=== PATIENT | female | born 2000 | race Caucasian/White ===

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

== ENCOUNTER 2020-09-01 09:44 | Emergency (ER) | payer BC, OTHER ==
[2020-09-01] MEDS ORDERED: Sodium Chloride 0.9% 1,000 ML IV ONE (10:08)
[2020-09-01] MEDS ORDERED: Ondansetron 4 MG/2 ML SDV IVPUSH ONE (10:08)
[2020-09-01] MEDS ORDERED: Pantoprazole 80 MG in Sodium Chloride 0.9% 20 ML IVPUSH ONE (10:13)
[2020-09-01 10:34] LABS: BLOOD UREA NITROGEN,BUN 10 mg/dL (7.0-18.0); CARBON DIOXIDE,CO2 21.6 mmol/L (21.0-32.0); CHLORIDE,CL 104 mmol/L (98-107); GLUCOSE RANDOM 89 mg/dL (74-106); LIPASE 53 U/L (73-393); POTASSIUM,K 4.3 mmol/L (3.5-5.1); SODIUM,NA 139 mmol/L (136-145)
[2020-09-01] MEDS ORDERED: Sodium Chloride 0.9% 500 ML IV SCH (11:00)
--- NOTE | 2020-09-01 11:12 | EDM.PDOC ---
ED HPI GENERAL MEDICAL PROBLEM - General Chief Complaint: Gastrointestinal Problem Stated Complaint: VOMITTING Time Seen by Provider: 09/01/20 09:59 Source of Information: Reports: Patient History Limitations: Reports: No Limitations - History of Present Illness INITIAL COMMENTS - FREE TEXT/NARRATIVE: HISTORY AND PHYSICAL: History of present illness: Patient is a 20-year-old female who presents to the ED today with concern of nausea and vomiting after a night of binge drinking alcohol. Patient states that she went out last night with friends and she drank too much alcohol and starting in the middle of the night has been vomiting. Patient states she is vomited approximately 6 times since 5 this morning. Patient states her last episode of vomiting was 3 hours prior to arrival to the ED. Patient states she has not tried to drink any fluids as she feels nauseous. Patient states that she has noticed some blood in her emesis. Patient states that she does not usually drink alcohol and does not use it chronically. Patient denies any other substance use. Patient denies any health history. Patient denies fever, chills, chest pain, shortness of breath, or cough. Denies headache, neck stiff ness, change in vision, syncope, or near syncope. Denies abdominal pain, diarrhea, constipation, or dysuria. Has not noted any blood in urine or stool. Review of systems: As per history of present illness and below otherwise all systems reviewed and negative. Past medical history: As per history of present illness and as reviewed below otherwise noncontributory. Surgical history: As per history of present illness and as reviewed below otherwise noncontributory. Social history: See social history for further information Family history: As per history of present illness and as reviewed below otherwise noncontributory. Physical exam: General: Patient is alert, oriented, and in no acute distress. Patient sitting comfortably on exam table. Tachycardic 120 otherwise vitally stable. HEENT: Atraumatic, normocephalic, pupils equal and reactive bilaterally, negative for conjunctival pallor or scleral icterus, mucous membranes moist, TMs normal bilaterally, throat clear, neck supple, nontender, trachea midline. No drooling or trismus noted. No meningeal signs. No hot potato voice noted. Lungs: Clear to auscultation, breath sounds equal bilaterally, chest nontender. Heart: S1S2, regular rate and rhythm without overt murmur Abdomen: Soft, nondistended, nontender. Negative for masses or hepatosplenomegaly. Negative for costovertebral tenderness. Pelvis: Stable nontender. Genitourinary: Deferred. Rectal: Deferred. Skin: Intact, warm, dry. No lesions or rashes noted. Extremities: Atraumatic, negative for cords or calf pain. Neurovascular unremarkable. Neuro: Awake, alert, oriented. Cranial nerves II through XII unremarkable. Cerebellum unremarkable. Motor and sensory unremarkable throughout. Exam nonfocal. Notes: On initial exam, patient is well-appearing and she is not actively vomiting. She has not had any episodes of emesis over the past 3 hours prior to arriving to the ED. She is tachycardic 120s otherwise vitally stable. Will obtain la bwork, initiate IV fluids, and reassess patient. After 1L NS, his heart rate has normalized to 80 and 90 bpm and she remains comfortable on exam. She has not had any episodes of vomiting in the ED. Patient monitored for total of 2-1/2 hours (now 5.5 hours since last episode of emesis) has not had any vomiting today in the ED. She remains vitally stable and comfortable on exam. Strict return precautions thoroughly discussed with patient. Discussed importance for follow-up with a primary care provider. Voices understanding and is agreeable to plan of care. Denies any further questions or concerns at this time. Diagnostics: CBC, CMP, Serum hcg, Lipase Therapeutics: NS, Zofran, Protonix Prescription: Zofran, Prilosec Impression: Nausea H/O vomiting H/O hematemesis Plan: 1. Take medication as prescribed. Encourage small but frequent sips of fluid to prevent dehydration. 2. Follow-up with your primary care provider as discussed. Return to the ED as needed and as discussed. Definitive disposition and diagnosis as appropriate pending reevaluation and review of above. 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: Reports: 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 Musculoskeletal History: Reports: None Neurological History: Reports: None Psychiatric History: Reports: None Endocrine/Metabolic History: Reports: None Hematologic History: Reports: None Immunologic History: Reports: None Oncologic (Cancer) History: Reports: None Dermatologic History: Reports: None - Past Surgical History Head Surgeries/Procedures: Reports: None HEENT Surgical History: Reports: None Cardiovascular Surgical History: Reports: None Respiratory Surgical History: Reports: None GI Surgical History: Reports: None Female Surgical History: Reports: None Endocrine Surgical History: Reports: None Neurological Surgical History: Reports: None Musculoskeletal Surgical History: Reports: None Oncologic Surgical History: Reports: None Dermatological Surgical History: Reports: None Social & Family History - Family History Family Medical History: No Pertinent Family History - Tobacco Use Tobacco Use Status *Q: Never Tobacco User - Caffeine Use Caffeine Use: Reports: Coffee, Energy Drinks, Soda, Tea - Recreational Drug Use Recreational Drug Use: No ED ROS GENERAL - Review of Systems Review Of Systems: Comprehensive ROS is negative, except as noted in HPI. ED EXAM, GENERAL - Physical Exam Exam: See Below (see dictation) Course - Vital Signs Last Recorded V/S: Last Vital Signs Temp 97.8 F 09/01/20 09:51 Pulse 101 H 09/01/20 11:23 Resp 16 09/01/20 11:23 BP 111/64 09/01/20 11:23 Pulse Ox 100 09/01/20 11:23 - Orders/Labs/Meds Orders: Active Orders 24 hr Category Date Time Status Chest 1V Frontal [CR] Stat Exams 09/01/20 11:35 Taken Sodium Chloride 0.9% [Normal Saline] 500 ml Med 09/01/20 11:00 Active IV STAT Medication Orders Sodium Chloride (Normal Saline) 500 mls @ 999 mls/hr IV STAT ANN Last Admin: 09/01/20 11:23 Dose: 999 mls/hr Documented by: TIMO Labs: Laboratory Tests 09/01/20 09/01/20 09/01/20 Range/Units 10:03 10:03 10:03 WBC 12.05 H (4.0-11.0) K/uL RBC 4.82 (4.30-5.90) M/uL Hgb 14.9 (12.0-16.0) g/dL Hct 43.7 (36.0-46.0) % MCV 90.7 (80.0-98.0) fL MCH 30.9 (27.0-32.0) pg MCHC 34.1 (31.0-37.0) g/dL RDW Std Deviation 42.6 (28.0-62.0) fl RDW Coeff of Sukumar 13 (11.0-15.0) % Plt Count 230 (150-400) K/uL MPV 11.80 (7.40-12.00) fL Neut % (Auto) 83.3 H (48.0-80.0) % Lymph % (Auto) 11.5 L (16.0-40.0) % [place] % (Auto) 4.8 (0.0-15.0) % Eos % (Auto) 0.2 (0.0-7.0) % Baso % (Auto) 0.2 (0.0-1.5) % Neut # (Auto) 10.0 H (1.4-5.7) K/uL Lymph # (Auto) 1.4 (0.6-2.4) K/uL [place] # (Auto) 0.6 (0.0-0.8) K/uL Eos # (Auto) 0.0 (0.0-0.7) K/uL Baso # (Auto) 0.0 (0.0-0.1) K/uL Nucleated RBC % 0.0 /100WBC Nucleated RBCs # 0 K/uL Sodium 139 (136-145) mmol/L Potassium 4.3 (3.5-5.1) mmol/L Chloride 104 (98-107) mmol/L Carbon Dioxide 21.6 (21.0-32.0) mmol/L BUN 10 (7.0-18.0) mg/dL Creatinine 0.9 (0.6-1.0) mg/dL Est Cr Clr Drug Dosing 85.38 mL/min Estimated GFR (MDRD) > 60.0 ml/min Glucose 89 (74-106) mg/dL Calcium 9.4 (8.5-10.1) mg/dL Total Bilirubin 0.6 (0.2-1.0) mg/dL AST 14 L (15-37) IU/L ALT 21 (14-63) IU/L Alkaline Phosphatase 93 (46-116) U/L Total Protein 8.7 H (6.4-8.2) g/dL Albumin 4.5 (3.4-5.0) g/dL Globulin 4.2 H (2.6-4.0) g/dL Albumin/Globulin Ratio 1.1 (0.9-1.6) Lipase 53 L (73-393) U/L HCG, Qual NEGATIVE (NEG) Meds: Medications Generic Name Dose Route Start Last Admin Trade Name Freq PRN Reason Stop Dose Admin Sodium Chloride 500 mls @ 999 mls/hr 09/01/20 11:00 09/01/20 11:23 Normal Saline IV 999 mls/hr STAT ANN Administration Discontinued Medications Generic Name Dose Route Start Last Admin Trade Name Freq PRN Reason Stop Dose Admin Sodium Chloride 1,000 mls @ 999 mls/hr 09/01/20 10:08 09/01/20 10:22 Normal Saline IV 09/01/20 11:08 999 mls/hr BOLUS ONE Administration Pantoprazole Sodium 80 mg/ 20 mls @ 420 mls/hr 09/01/20 10:13 09/01/20 10:21 Sodium Chloride IVPUSH 09/01/20 10:15 420 mls/hr ONETIME ONE Administration Ondansetron HCl 4 mg 09/01/20 10:08 09/01/20 10:21 Ondansetron 4 Mg/2 Ml Sdv IVPUSH 09/01/20 10:09 4 mg ONETIME ONE Administration Departure - Departure Time of Disposition: 12:10 Disposition: Home, Self-Care 01 Clinical Impression: Nausea, History of vomiting, History of hematemesis - Discharge Information Prescriptions: Omeprazole Magnesium [Prilosec] 10 mg PO DAILY #1 suspdr.pkt Ondansetron [Zofran ODT] 4 mg PO Q6H PRN #8 tab.dis PRN Reason: Nausea/Vomiting Instructions: Nausea and Vomiting, Adult Referrals: PCP,None [Primary Care Provider] - Forms: ED Department Discharge Additional Instructions: The following information is given to patients seen in the emergency department who are being discharged to home. This information is to outline your options for follow-up care. We provide all patients seen in our emergency department with a follow-up referral. The need for follow-up, as well as the timing and circumstances, are variable depending upon the specifics of your emergency department visit. If you don't have a primary care physician on staff, we will provide you with a referral. We always advise you to contact your personal physician following an emergency department visit to inform them of the circumstance of the visit and for follow-up with them and/or the need for any referrals to a consulting specialist. The emergency department will also refer you to a specialist when appropriate. This referral assures that you have the opportunity for follow-up care with a specialist. All of these measure are taken in an effort to provide you with optimal care, which includes your follow-up. Under all circumstances we always encourage you to contact your private physician who remains a resource for coordinating your care. When calling for follow-up care, please make the office aware that this follow-up is from your recent emergency room visit. If for any reason you are refused follow-up, please contact the [facility] Emergency Department at and asked to speak to the emergency department charge nurse. [facility] [address] [place] [id number] [id number] 1. Take medication as prescribed. Encourage small but frequent sips of fluid to prevent dehydration. 2. Follow-up with your primary care provider as discussed. Return to the ED as needed and as discussed. Sepsis Event Note (ED) - Evaluation Sepsis Screening Result: No Definite Risk - Focused Exam Vital Signs: Vital Signs Temp Pulse Resp BP Pulse Ox 09/01/20 11:23 101 H 16 111/64 100 09/01/20 11:10 93 16 105/78 100 09/01/20 09:51 97.8 F 120 H 18 124/79 98 - My Orders Last 24 Hours: My Active Orders 09/01/20 11:00 Sodium Chloride 0.9% [Normal Saline] 500 ml IV STAT 09/01/20 11:35 Chest 1V Frontal [CR] Stat - Assessment/Plan Last 24 Hours: My Active Orders 09/01/20 11:00 Sodium Chloride 0.9% [Normal Saline] 500 ml IV STAT 09/01/20 11:35 Chest 1V Frontal [CR] Stat
--- NOTE | 2020-09-01 12:23 | CR ---
INDICATION: Vomiting. TECHNIQUE: Chest 1 view. COMPARISON: None FINDINGS: Cardiovascular and mediastinum: Heart size and vasculature are normal in caliber and appearance. Mediastinum is within normal limits. Lungs and pleural space: Lungs are clear. No sign of infiltrate or mass. No sign of pleural effusion. No pneumothorax. Bones and soft tissues: No significant findings. IMPRESSION: Lungs are clear. Dictated by David Campos MD @ Sep 01 2020 12:21PM Signed by Dr. David Campos @ Sep 01 2020 12:22PM
== END 2020-09-01 12:31 | disposition home or self-care (01) ==
LOC: MW.ED 09:44
DX: R11.2 Nausea with vomiting, unspecified (principal)
CPT/HCPCS: 36415; 71045; 80053; 83690; 84703; 85025; 96374; 96375; 99284; C9113; J2405; J7030; J7040; 99283

== ENCOUNTER 2022-04-15 20:24 | Emergency (ER) | payer BC, OTHER | END 2022-04-15 21:29 | disposition home or self-care (01) | LOC: MW.ED 20:24 | DX: S93.491A Sprain of other ligament of right ankle, initial encounter (principal); X50.1XXA Overexertion from prolonged static or awkward postures, initial encounter; Y93.68 Activity, volleyball (beach) (court) | CPT/HCPCS: 73610-26-RT; 73610-RT; 99283 ==

== ENCOUNTER 2024-03-08 20:33 | Emergency (ER) | payer SELFPAY ==
[2024-03-08] MEDS: traMADol 50 MG Tab PO ONE (21:27)
== END 2024-03-08 21:58 | disposition home or self-care (01) ==
LOC: MW.ED 20:33
DX: S93.401A Sprain of unspecified ligament of right ankle, initial encounter (principal); Z75.8 Other problems related to medical facilities and other health care; X50.1XXA Overexertion from prolonged static or awkward postures, initial encounter
CPT/HCPCS: 73610; 99283; A9270